=== PATIENT | female | born 1975 | race African-American/Black ===

== ENCOUNTER 2021-09-07 14:28 | Inpatient (IN) | payer OTHER ==
[2021-09-07 16:21] VITALS: BMI 35.7
[2021-09-07] MEDS ORDERED: MAG HYDROX/AL HYDROX/SIMETH 30 ML UNIT-DOSE CUP PO PRN (20:21)
[2021-09-07] MEDS ORDERED: MAGNESIUM CITRATE 300 ML BOTTLE PO PRN (20:21)
[2021-09-07] MEDS ORDERED: MENTHOL/PHENOL 1 EACH UD MM PRN (20:21)
[2021-09-07] MEDS ORDERED: MAGNESIUM HYDROX 2400MG/30ML ORAL SUSPENSION 30 ML CUP PO PRN (20:21)
[2021-09-07] MEDS ORDERED: ONDANSETRON *ODT* 4 MG TABLET SL PRN (20:21)
[2021-09-07] MEDS ORDERED: ACETAMINOPHEN 325 MG TABLET (FP) PO PRN ×2 (20:21)
[2021-09-07] MEDS ORDERED: METHOCARBAMOL 500 MG TABLET PO PRN (20:21)
[2021-09-07] MEDS ORDERED: BISMUTH SUBSALICYLATE 524 MG/30 ML PO PRN (20:21)
[2021-09-07] MEDS ORDERED: IBUPROFEN 400 MG TABLET (FP) PO PRN (20:21)
[2021-09-07] MEDS: MELATONIN 5 MG TABLETS PO SCH (21:58)
[2021-09-07] MEDS: THIAMINE HCL 100 MG TABLET (FP) PO SCH (21:58)
[2021-09-07] MEDS: hydrOXYzine PAMOATE 25 MG CAPSULE (FP) PO SCH (21:59)
[2021-09-08] MEDS: hydrOXYzine PAMOATE 25 MG CAPSULE (FP) PO SCH ×5 (06:14→22:36)
[2021-09-08] MEDS: PRENATAL VITAMINS W/ FOLIC ACID TABLET (FP) PO SCH (10:41)
[2021-09-08 12:56] LABS: MCHC 33.7 g/dl (32.0-36.0); RDW 14.2 % (11.6-15.6)
[2021-09-08 13:00] LABS: HEMATOCRIT 35.5 % (32.4-45.2); MCH 31.7 pg (25.7-33.7); MEAN PLT VOLUME 9.6 fl (7.5-11.1); PLATELET COUNT 224 10^3/uL (134-434); RBC 3.78 M/mm3 (3.60-5.2)
[2021-09-08 13:15] LABS: CALCIUM 8.5 mg/dL (8.5-10.1)
[2021-09-08 13:16] LABS: ALBUMIN 2.8 g/dl (3.4-5.0); BLOOD UREA NITROGEN 9.9 mg/dL (7-18)
[2021-09-08 13:19] LABS: CREATININE 0.7 mg/dL (0.55-1.3)
[2021-09-08 13:21] LABS: BILIRUBIN,TOTAL 0.4 mg/dL (0.2-1); TOT PROT 7.2 g/dl (6.4-8.2)
[2021-09-08 13:55] LABS: HIV INTERPRETATION NEGATIVE (NEGATIVE)
[2021-09-08] MEDS: THIAMINE HCL 100 MG TABLET (FP) PO SCH (22:36)
[2021-09-08] MEDS: MELATONIN 5 MG TABLETS PO SCH (22:36)
[2021-09-09] MEDS: hydrOXYzine PAMOATE 25 MG CAPSULE (FP) PO SCH (06:43)
[2021-09-09] MEDS ORDERED: hydrOXYzine PAMOATE 25 MG CAPSULE (FP) PO PRN (08:23)
[2021-09-09] MEDS: PRENATAL VITAMINS W/ FOLIC ACID TABLET (FP) PO SCH (10:29)
[2021-09-09 13:01] VITALS: BP 139/90; PULSE 98; TEMP 96.6
== END 2021-09-09 15:58 | disposition home or self-care (01) | DRG 774 ==
LOC: YASAS 14:28 → Y3N 21:12
PROVIDERS: ADMIT Allergy & Immunology; ATTEND Allergy & Immunology
PROC: HZ2ZZZZ Detoxification Services for Substance Abuse Treatment (ICD-10-PCS; principal; 2021-09-07)
DX: F10.230 Alcohol dependence with withdrawal, uncomplicated (principal); F14.20 Cocaine dependence, uncomplicated; F12.20 Cannabis dependence, uncomplicated; F16.10 Hallucinogen abuse, uncomplicated; J45.20 Mild intermittent asthma, uncomplicated
CPT/HCPCS: 36415; 80053; 81025; 85027; 86780; 87389; C9803; U0003; U0005

== ENCOUNTER 2021-09-09 13:44 | Inpatient (IN) | payer OTHER ==
[2021-09-09] MEDS ORDERED: IBUPROFEN 400 MG TABLET (FP) PO PRN (15:29)
[2021-09-09] MEDS ORDERED: P-EPHED 60MG/TRIPROLIDI 2.5MG TABLET PO PRN (15:29)
[2021-09-09] MEDS ORDERED: MAGNESIUM HYDROX 2400MG/30ML ORAL SUSPENSION 30 ML CUP PO PRN (15:29)
[2021-09-09] MEDS ORDERED: NICOTINE POLACRILEX 4 MG GUM BUC PRN (15:29)
[2021-09-09] MEDS ORDERED: MAGNESIUM CITRATE 300 ML BOTTLE PO PRN (15:29)
[2021-09-09] MEDS ORDERED: LOPERAMIDE HCL 2 MG CAPSULE PO PRN (15:29)
[2021-09-09] MEDS ORDERED: hydrOXYzine PAMOATE 25 MG CAPSULE (FP) PO PRN (15:29)
[2021-09-09] MEDS ORDERED: ALBUTEROL SO4 HFA INHALER IH PRN (15:31)
[2021-09-09] MEDS ORDERED: MELATONIN 5 MG TABLETS PO SCH (22:00)
[2021-09-09] MEDS: THIAMINE HCL 100 MG TABLET (FP) PO SCH (22:05)
[2021-09-10] MEDS: PRENATAL VITAMINS W/ FOLIC ACID TABLET (FP) PO SCH (10:39)
[2021-09-10] MEDS: NICOTINE 21 MG/24 HOURS TOPICAL PATCH TD SCH (10:40)
[2021-09-10] MEDS ORDERED: CALAMINE 8% TOPICAL LOTION 177 ML BOTTLE TP PRN (20:35)
[2021-09-10] MEDS: MELATONIN 5 MG TABLETS PO SCH (21:47)
[2021-09-10] MEDS: THIAMINE HCL 100 MG TABLET (FP) PO SCH (21:47)
[2021-09-11] MEDS: NICOTINE 21 MG/24 HOURS TOPICAL PATCH TD SCH (11:20)
[2021-09-11] MEDS: PRENATAL VITAMINS W/ FOLIC ACID TABLET (FP) PO SCH (11:21)
[2021-09-11] MEDS: THIAMINE HCL 100 MG TABLET (FP) PO SCH (21:23)
[2021-09-11] MEDS: MELATONIN 5 MG TABLETS PO SCH (21:23)
[2021-09-12] MEDS: PRENATAL VITAMINS W/ FOLIC ACID TABLET (FP) PO SCH (09:49)
[2021-09-12] MEDS: NICOTINE 21 MG/24 HOURS TOPICAL PATCH TD SCH (09:49)
[2021-09-12] MEDS: THIAMINE HCL 100 MG TABLET (FP) PO SCH (21:30)
[2021-09-12] MEDS: MELATONIN 5 MG TABLETS PO SCH (21:30)
[2021-09-13] MEDS: PRENATAL VITAMINS W/ FOLIC ACID TABLET (FP) PO SCH (10:52)
[2021-09-13] MEDS: NICOTINE 21 MG/24 HOURS TOPICAL PATCH TD SCH (10:52)
[2021-09-13] MEDS: THIAMINE HCL 100 MG TABLET (FP) PO SCH (21:15)
[2021-09-13] MEDS: MELATONIN 5 MG TABLETS PO SCH (21:15)
[2021-09-14] MEDS: PRENATAL VITAMINS W/ FOLIC ACID TABLET (FP) PO SCH (10:27)
[2021-09-14] MEDS: NICOTINE 21 MG/24 HOURS TOPICAL PATCH TD SCH (10:27)
[2021-09-14] MEDS: MELATONIN 5 MG TABLETS PO SCH (21:27)
[2021-09-14] MEDS: THIAMINE HCL 100 MG TABLET (FP) PO SCH (21:27)
[2021-09-15] MEDS: PRENATAL VITAMINS W/ FOLIC ACID TABLET (FP) PO SCH (10:08)
[2021-09-15] MEDS: NICOTINE 21 MG/24 HOURS TOPICAL PATCH TD SCH (10:08)
[2021-09-15] MEDS: ACETAMINOPHEN 325 MG TABLET (FP) PO PRN ×2 (10:09→21:57)
[2021-09-15] MEDS: MAG HYDROX/AL HYDROX/SIMETH 30 ML UNIT-DOSE CUP PO PRN ×2 (10:10→21:51)
[2021-09-15] MEDS: THIAMINE HCL 100 MG TABLET (FP) PO SCH (21:52)
[2021-09-15] MEDS: MELATONIN 5 MG TABLETS PO SCH (21:52)
[2021-09-16] MEDS: PRENATAL VITAMINS W/ FOLIC ACID TABLET (FP) PO SCH ×2 (10:27→10:34)
[2021-09-16] MEDS: NICOTINE 21 MG/24 HOURS TOPICAL PATCH TD SCH (10:27)
[2021-09-16] MEDS: THIAMINE HCL 100 MG TABLET (FP) PO SCH (21:51)
[2021-09-16] MEDS: MELATONIN 5 MG TABLETS PO SCH (21:51)
[2021-09-16] MEDS: ACETAMINOPHEN 325 MG TABLET (FP) PO PRN (21:52)
[2021-09-17] MEDS: NICOTINE 21 MG/24 HOURS TOPICAL PATCH TD SCH (10:36)
[2021-09-17] MEDS: PRENATAL VITAMINS W/ FOLIC ACID TABLET (FP) PO SCH (10:36)
[2021-09-17] MEDS: MELATONIN 5 MG TABLETS PO SCH (21:21)
[2021-09-17] MEDS: ACETAMINOPHEN 325 MG TABLET (FP) PO PRN (21:22)
[2021-09-17] MEDS: THIAMINE HCL 100 MG TABLET (FP) PO SCH (23:07)
[2021-09-18] MEDS: PRENATAL VITAMINS W/ FOLIC ACID TABLET (FP) PO SCH (10:18)
[2021-09-18] MEDS: NICOTINE 21 MG/24 HOURS TOPICAL PATCH TD SCH (10:18)
[2021-09-18] MEDS: MELATONIN 5 MG TABLETS PO SCH (21:09)
[2021-09-18] MEDS: THIAMINE HCL 100 MG TABLET (FP) PO SCH (21:09)
[2021-09-18] MEDS: ACETAMINOPHEN 325 MG TABLET (FP) PO PRN (21:10)
[2021-09-19] MEDS: guaiFENesin 200 MG/10 ML 10 ML UNIT-DOSE CUPS PO PRN ×2 (06:23→21:17)
[2021-09-19] MEDS: MENTHOL/PHENOL 1 EACH UD MM PRN ×2 (10:37→21:19)
[2021-09-19] MEDS: PRENATAL VITAMINS W/ FOLIC ACID TABLET (FP) PO SCH (10:37)
[2021-09-19] MEDS: NICOTINE 21 MG/24 HOURS TOPICAL PATCH TD SCH (10:37)
[2021-09-19] MEDS: ACETAMINOPHEN 325 MG TABLET (FP) PO PRN (10:38)
[2021-09-19] MEDS: MELATONIN 5 MG TABLETS PO SCH (21:17)
[2021-09-19] MEDS: THIAMINE HCL 100 MG TABLET (FP) PO SCH (21:17)
[2021-09-20 08:06] LABS: SARS-CoV-2 NAA Not Detected (Not Detected)
[2021-09-20] MEDS: NICOTINE 21 MG/24 HOURS TOPICAL PATCH TD SCH (10:29)
[2021-09-20] MEDS: PRENATAL VITAMINS W/ FOLIC ACID TABLET (FP) PO SCH (10:29)
[2021-09-20] MEDS ORDERED: COLLOIDAL OATMEAL 1 BAR EACH TP PRN (11:23)
[2021-09-20] MEDS: THIAMINE HCL 100 MG TABLET (FP) PO SCH (21:15)
[2021-09-20] MEDS: MENTHOL/PHENOL 1 EACH UD MM PRN (21:15)
[2021-09-20] MEDS: MELATONIN 5 MG TABLETS PO SCH (21:15)
[2021-09-21 07:30] VITALS: BP 110/63; PULSE 89; TEMP 98.1
[2021-09-21] MEDS: PRENATAL VITAMINS W/ FOLIC ACID TABLET (FP) PO SCH (10:49)
[2021-09-21] MEDS: NICOTINE 21 MG/24 HOURS TOPICAL PATCH TD SCH (10:49)
[2021-09-21 17:59] LABS: URINE APPEARANCE CLEAR; URINE BILIRUBIN NEGATIVE (NEGATIVE); URINE COLOR YELLOW; URINE GLUCOSE (UA) NEGATIVE (NEGATIVE); URINE KETONE NEGATIVE (NEGATIVE); URINE LEUK ESTERASE NEGATIVE (NEGATIVE); URINE NITRITE NEGATIVE (NEGATIVE); URINE PROTEIN TRACE (NEGATIVE); URINE UROBILINOGEN 0.2 mg/dL (0.2-1.0)
== END 2021-09-21 19:45 | disposition left against medical advice (07) | DRG 770 ==
LOC: YASAS 13:44 → Y5N 13:47
PROVIDERS: ADMIT Allergy & Immunology; ATTEND Allergy & Immunology
PROC: HZ42ZZZ Group Counseling for Substance Abuse Treatment, Cognitive-Behavioral (ICD-10-PCS; principal; 2021-09-09)
DX: F10.20 Alcohol dependence, uncomplicated (principal); J45.909 Unspecified asthma, uncomplicated; R21 Rash and other nonspecific skin eruption
CPT/HCPCS: 81003; C9803; U0003; U0005